=== PATIENT | female | born 1970 ===

== ENCOUNTER 2021-09-19 16:16 | Emergency (ER) | payer MEDICAID ==
--- NOTE | 2021-09-19 17:33 | Event Note ---
ED Screening Note Date of service: 09/19/21 Time: 17:30 ED Screening Note: 51-year-old female presents to the ER today with complaints of a 3-day history of lower extremity swelling, as well as shortness of breath, wheezing and chest tightness and pain in her left groin. Patient states that she had a left hip replacement about 7 weeks ago. Patient states that she has had lower extremity swelling in the past, and was prescribed Lasix but she states that the swelling is worse than before. She denies any known history of PE or DVT in the past. She denies any heart disease. She denies any history of lung disease and she does not smoke. Past medical history significant for depression with PTSD, hypertension and peripheral edema. Also hx of EtOH abuse, but recently went through detox and has not had a drink since September 19. This initial assessment/diagnostic orders/clinical plan/treatment(s) is/are subject to change based on patients health status, clinical progression and re- assessment by fellow clinical providers in the ED. Further treatment and workup at subsequent clinical providers discretion. Patient/guardian urged not to elope from the ED as their condition may be serious if not clinically assessed and managed. Initial orders include: Labs including chest x-ray, EKG and D-dimer
--- NOTE | 2021-09-19 18:04 | XRay Report ---
CHEST 2 VIEWS INDICATION / CLINICAL INFORMATION: sob. COMPARISON: None available. FINDINGS: SUPPORT DEVICES: None. HEART / MEDIASTINUM: No significant abnormality. LUNGS / PLEURA: No significant pulmonary or pleural abnormality. No pneumothorax. ADDITIONAL FINDINGS: No significant additional findings. IMPRESSION: 1. No acute findings. Signer Name: Harrison Dinh MD Signed: 09/19/2021 6:00 PM Workstation Name: [id number]
[2021-09-19 18:05] LABS: Basophils % (Auto) 0.4 % (0.0-1.8); Eosinophils # (Auto) 0.1 K/mm3 (0.0-0.4); Eosinophils % (Auto) 1.6 % (0.0-4.3); Hematocrit 39.7 % (30.3-42.9); Lymphocytes # (Auto) 1.7 K/mm3 (1.2-5.4); Lymphocytes % (Auto) 23.3 % (13.4-35.0); Mean Corpuscular HGB Conc 33 % (30-34); Mean Corpuscular Volume 95 fl (79-97); Monocytes # (Auto) 0.8 K/mm3 (0.0-0.8); Monocytes % (Auto) 10.4 % (0.0-7.3); Platelet Count 308 K/mm3 (140-440); Red Blood Count 4.18 M/mm3 (3.65-5.03); Red Cell Distribution Width 14.9 % (13.2-15.2)
[2021-09-19 18:32] LABS: Alanine Aminotransferase 35 units/L (7-56); Albumin 4.5 g/dL (3.9-5); Blood Urea Nitrogen 13 mg/dL (7-17); Calcium 9.7 mg/dL (8.4-10.2); Hemolysis Index 22
[2021-09-19 18:33] LABS: BUN/Creatinine Ratio 22
--- NOTE | 2021-09-19 19:11 | Emergency Department Report ---
ED Lower Extremity HPI - General Chief Complaint: Dyspnea/Respdistress Stated Complaint: WHEEZING,SOB,EDEMA,PAIN GROIN Time Seen by Provider: 09/19/21 17:41 Source: patient Mode of arrival: Ambulatory Limitations: No Limitations - History of Present Illness Initial Comments: CC: "It is the swelling." HPI: This a 51-year-old female with history of PTSD, hypertension peripheral edema of lower extremity swelling for several months. She has history of recent hip surgery 7 weeks ago. She is on Lasix for the swelling. She recently had echocardiogram in June by her [employer] group 2 months ago in [place]. She has had intermittent shortness of breath wheezing for the past several months necessitating work-up. Swelling has worsened over the last several days. She wants to make sure she does not have a lung clot. -: Gradual, days(s) (Worse over several days) Severity: mild Improves With: nothing - Related Data Allergies Allergy/AdvReac Type Severity Reaction Status Date / Time butorphanol [From Stadol] AdvReac Unknown Verified 09/19/21 16:44 lamotrigine [From Lamictal] AdvReac Unknown Verified 09/19/21 16:44 ED Review of Systems ROS: Stated complaint: WHEEZING,SOB,EDEMA,PAIN GROIN Other details as noted in HPI Comment: All other systems reviewed and negative Constitutional: denies: chills, fever, malaise Respiratory: denies: cough, shortness of breath, wheezing Cardiovascular: denies: chest pain ED Past Medical Hx - Past Medical History Previous Medical History?: Yes Hx Hypertension: Yes Additional medical history: PTSD - Surgical History Past Surgical History?: Yes Additional Surgical History: hip surgery - Social History Substance Use Type: Alcohol ED Physical Exam - General Limitations: No Limitations General appearance: alert, in no apparent distress - Head Head exam: Present: atraumatic, normocephalic - Eye Eye exam: Present: normal appearance - ENT ENT exam: Present: mucous membranes moist - Neck Neck exam: Present: normal inspection - Respiratory Respiratory exam: Present: normal lung sounds bilaterally. Absent: respiratory distress, wheezes, rales, stridor - Cardiovascular Cardiovascular Exam: Present: regular rate, normal rhythm. Absent: systolic murmur, diastolic murmur, rubs, gallop - GI/Abdominal GI/Abdominal exam: Present: soft, normal bowel sounds. Absent: distended, tenderness, guarding, rebound - Extremities Exam Extremities exam: Present: pedal edema - Back Exam Back exam: Present: normal inspection - Neurological Exam Neurological exam: Present: alert, oriented X3 - Psychiatric Psychiatric exam: Present: normal affect, normal mood - Skin Skin exam: Present: warm, dry, intact, normal color. Absent: rash ED Course Vital Signs 09/19/21 16:40 Temperature 98.8 F Pulse Rate 88 Respiratory 18 Rate Blood Pressure 165/95 O2 Sat by Pulse 98 Oximetry ED Lower Extremity MDM - Lab Data Result diagrams: 09/19/21 17:55 09/19/21 17:55 Laboratory Results - last 24 hr 09/19/21 09/19/21 17:55 17:55 WBC 7.3 RBC 4.18 Hgb 13.0 Hct 39.7 MCV 95 MCH 31 MCHC 33 RDW 14.9 Plt Count 308 Lymph % (Auto) 23.3 White % (Auto) 10.4 H Eos % (Auto) 1.6 Baso % (Auto) 0.4 Lymph # (Auto) 1.7 White # (Auto) 0.8 Eos # (Auto) 0.1 Baso # (Auto) 0.0 Seg Neutrophils % 64.3 Seg Neutrophils # 4.7 Sodium 136 L Potassium 4.2 Chloride 99.3 Carbon Dioxide 22 Anion Gap 19 BUN 13 Creatinine 0.6 Estimated GFR > 60 BUN/Creatinine Ratio 22 Glucose 95 Calcium 9.7 Total Bilirubin 0.30 AST 25 ALT 35 Alkaline Phosphatase 101 Troponin T < 0.010 Total Protein 6.8 Albumin 4.5 Albumin/Globulin Ratio 2.0 Lipase 30 - Radiology Data Radiology results: report reviewed Patient Name: CANDIDO GILES Gender: Female Date of : 1970 Home Phone: Referring Provider: LUCIANA DREW Organization: [facility] Accession Number: [id number] Requested Date: September 19, 2021 17:33 Report Status: Final Requested Procedure: 1 Procedure Description: XR chest routine 2V Modality: XR Findings Reporting MD: Harrison Dinh Dictation Time: September 19, 2021 17:00 [employer] Planter: Not available Operations Controller Date: CHEST 2 VIEWS INDICATION / CLINICAL INFORMATION: sob. COMPARISON: None available. FINDINGS: SUPPORT DEVICES: None. HEART / MEDIASTINUM: No significant abnormality. LUNGS / PLEURA: No significant pulmonary or pleural abnormality. No pneumothorax. ADDITIONAL FINDINGS: No significant additional findings. IMPRESSION: 1. No acute findings. Signer Name: Harrison Dinh MD Signed: 09/19/2021 5:00 PM Workstation Name: [id number] - Medical Decision Making With hx of venous insufficiency patient has persistent yet worsening swelling. Recent surgery. Will rule out DVT wtih bilateral Doppler US. NO indication of PE CHF ACS on exam. Patient has had recent cardiology w/u for symptoms of chest pain, wheezing, shortness of breath. None of these symptoms currently Critical care attestation.: If time is entered above; I have spent that time in minutes in the direct care of this critically ill patient, excluding procedure time. ED Disposition Clinical Impression: Venous insufficiency of both lower extremities Disposition: 01 HOME / SELF CARE / HOMELESS Is pt being admited?: No Does the pt Need Aspirin: No Condition: Stable Instructions: Chronic Venous Insufficiency
--- NOTE | 2021-09-19 21:58 | Vascular Lab Report ---
Bilateral lower extremity Doppler venous ultrasound INDICATION: Swelling FINDINGS: Bilateral common femoral veins, superficial femoral veins and popliteal veins have normal c ompressibility and phasic flow. IMPRESSION: No evidence for DVT. Signer Name: Stan Trevino MD Signed: 09/19/2021 9:53 PM Workstation Name: [id number]
[2021-09-19 22:34] VITALS: BP 176/97
--- NOTE | 2021-09-21 13:55 | Electrocardiograph Report ---
[facility] Test Date: 2021-09-19 Test Time: 16:56:37 Pat Name: CANDIDO GILES Department: Room: Gender: F Ex Assistant/Program Director: : 1970 Requested By: LUCIANA DREW Order Number: [id number] Reading MD: Adolfo Joseph Measurements Intervals [place] Rate: 78 P: 18 TX: 154 QRS: 5 QRSD: 95 T: 34 QT: 414 QTc: 474 Interpretive Statements Sinus rhythm Anteroseptal infarct, age indeterminate No previous ECG available for comparison Electronically Signed On 09-21-2021 13:55:18 EDT by Adolfo Joseph
== END 2021-09-19 22:37 | disposition home or self-care (01) ==
LOC: ED 16:16
DX: I87.2 Venous insufficiency (chronic) (peripheral) (principal); R06.02 Shortness of breath; I10 Essential (primary) hypertension; Z72.89 Other problems related to lifestyle; Z88.8 Allergy status to other drugs, medicaments and biological substances
CPT/HCPCS: 36415; 71046; 80053; 83690; 84484; 85025; 93005; 93970; 99284